=== PATIENT | female | born 1995 | race Caucasian/White ===

== ENCOUNTER 2020-06-06 12:07 | Inpatient (IN) ==
[2020-06-06 13:03] LABS: Bacteria,Urine Occasional /HPF (Few); Bilirubin,Urine Negative (Negative); Blood, Urine Small mg/dL (Negative); Glucose,Urine (UA) Negative (Negative); Ketones,Urine Negative (Negative); Mucus,Urine Occasional /LPF (Occasional); Nitrite,Urine Negative (Negative); Protein,Urine 30 MG/DL; RBC,Urine 2 /HPF (0-4); Squamous Epithelial Cell,Urine Occasional /HPF (0-10); Urine Appearance Slightly Hazy (Clear); Urine Color Yellow (Yellow); Urine Specific Gravity 1.025 (1.001-1.035); WBC,Urine 4 /HPF (0-6)
[2020-06-06 13:13] LABS: Barbiturates Screen,Urine Negative (Negative); Benzodiazepines Screen,Urine Negative (Negative); Cannabinoid Screen,Urine Negative (Negative); Opiate Screen,Urine Negative (Negative); Phencyclidine Screen,Urine Negative (Negative)
[2020-06-06] MEDS ORDERED: MEPERIDINE 50 MG/1 ML VIAL IV ONE (13:14)
[2020-06-06] MEDS ORDERED: ONDANSETRON 4 MG/2 ML VIAL IV ONE (13:14)
[2020-06-06] MEDS ORDERED: LACTATED RINGERS 1,000 ML IV ONE (13:17)
[2020-06-06] MEDS ORDERED: ONDANSETRON 4 MG/2 ML VIAL IV PRN ×2 (14:23→15:28)
[2020-06-06] MEDS ORDERED: MEPERIDINE 50 MG/1 ML VIAL IV PRN (14:23)
[2020-06-06] MEDS ORDERED: BUTORPHANOL 2 MG/ML VIAL IV PRN (14:23)
[2020-06-06] MEDS ORDERED: LACTATED RINGERS 1,000 ML IV SCH (14:30)
[2020-06-06] MEDS ORDERED: OXYTOCIN/LR 20 UNIT/1,000 ML BAG IV SCH (14:30)
[2020-06-06] MEDS ORDERED: OXYTOCIN/LR 20 UNIT/1,000 ML BAG IV ONE ×2 (14:39→15:28)
[2020-06-06] MEDS ORDERED: TRANEXAMIC ACID 1,000 MG/10 ML VIAL ONE (14:39)
[2020-06-06] MEDS ORDERED: miSOPROStoL 200 MCG TABLET ONE (14:39)
[2020-06-06] MEDS ORDERED: CARBOPROST TROMETHAMINE 250 MCG/ML AMP IM ONE (14:40)
[2020-06-06] MEDS ORDERED: METHYLERGONOVINE 0.2 MG/1 ML AMP ONE (14:40)
[2020-06-06 14:45] LABS: Basophils % 0.2 % (0.0-0.8); Eosinophils % 0.3 % (0.00-10.9); Hematocrit 33.3 VOL% (35.7-47.0); Hemoglobin 10.5 GM/DL (12.0-16.0); Immature Granulocytes % 0.4 %; Immature Granulocytes Absolute 0.05 #; Lymphocytes # 1.6 10*3/uL (1.4-4.0); Lymphocytes % 14.2 % (21.3-54.2); Mean Corpuscular HGB Conc 31.5 GM/DL (32-36); Mean Corpuscular Volume 85.4 FL (87-102); Mean Platelet Volume 9.2 FL (9.6-12.0); Monocytes % 10.3 % (1.7-12.7); Neutrophils % 74.6 % (38.7-73.9); Platelet Count 254 T/CUMM (130-400); Red Cell Distribution Width 14.3 % (9.3-17.3); White Blood Count 11.3 T/CUMM (4-12)
[2020-06-06] MEDS ORDERED: LIDOCAINE 1% 50 ML VIAL ONE (14:48)
[2020-06-06 15:09] LABS: Albumin 2.6 G/DL (3.4-5.0); Bilirubin,Total 0.4 MG/DL (0.2-1.0); Osmolality,Calculated 272.7 MOS/KG (273-304); Total Protein 7.1 G/DL (6.4-8.3)
[2020-06-06 15:14] LABS: Cord Arterial Blood HCO3 20.1 MMOL/L
[2020-06-06 15:19] LABS: Cord Venous Blood HCO3 21.1 MMOL/L; Cord Venous Blood PCO2 40.9 MMHG
[2020-06-06] MEDS ORDERED: BISACODYL 10 MG SUPP RECTAL PRN (15:28)
[2020-06-06] MEDS ORDERED: RHO(D) IMMUNE GLOBULIN 300 MCG SYRINGE IM ONE (15:28)
[2020-06-06] MEDS ORDERED: BENZOCAINE 20%/MENTHOL 0.5% SPRAY 56 GM CAN TOP PRN (15:28)
[2020-06-06] MEDS ORDERED: HYDROCORTISONE 2.5% RECTAL CREAM 30 GM TUBE TOP PRN (15:28)
[2020-06-06] MEDS ORDERED: DIPH/TET/ACEL PERT BOOSTER VACCINE 0.5 ML VIAL IM ONE (15:28)
[2020-06-06] MEDS ORDERED: WITCH HAZEL PADS 100/JAR TOP PRN (15:28)
[2020-06-06] MEDS ORDERED: ACETAMINOPHEN 325 MG TABLET PO PRN (15:28)
[2020-06-06] MEDS ORDERED: oxyCODONE/ACETAMINOPHEN 5-325 MG TABLET PO PRN (15:28)
[2020-06-06] MEDS ORDERED: MEASLES/MUMPS/RUBELLA VACCINE 0.5 ML VIAL SUBCUT ONE (15:28)
[2020-06-06] MEDS ORDERED: LANOLIN 50% CREAM 0.3 OZ TUBE TOP PRN (15:28)
[2020-06-06] MEDS: IBUPROFEN 800 MG TABLET PO PRN (17:38)
[2020-06-06] MEDS: oxyCODONE/ACETAMINOPHEN 5-325 MG TABLET PO PRN (20:32)
[2020-06-06] MEDS: DOCUSATE SODIUM 100 MG CAPSULE PO SCH (20:32)
[2020-06-07 06:39] LABS: Basophils % 0.2 % (0.0-0.8); Eosinophils % 0.2 % (0.00-10.9); Hematocrit 28.7 VOL% (35.7-47.0); Hemoglobin 8.8 GM/DL (12.0-16.0); Immature Granulocytes % 0.5 %; Immature Granulocytes Absolute 0.05 #; Lymphocytes # 1.1 10*3/uL (1.4-4.0); Lymphocytes % 12.4 % (21.3-54.2); Mean Corpuscular HGB Conc 30.7 GM/DL (32-36); Mean Corpuscular Volume 86.7 FL (87-102); Mean Platelet Volume 9.1 FL (9.6-12.0); Monocytes % 9.3 % (1.7-12.7); Neutrophils % 77.4 % (38.7-73.9); Platelet Count 203 T/CUMM (130-400); Red Blood Count 3.31 MC/CUMM (3.8-5.5); Red Cell Distribution Width 14.4 % (9.3-17.3); White Blood Count 9.1 T/CUMM (4-12)
[2020-06-07] MEDS: IBUPROFEN 800 MG TABLET PO PRN ×2 (09:14→15:03)
[2020-06-07] MEDS: oxyCODONE/ACETAMINOPHEN 5-325 MG TABLET PO PRN ×2 (09:16→15:03)
[2020-06-07] MEDS: FERROUS SULFATE 325 MG TABLET PO SCH ×2 (09:16→20:19)
[2020-06-07] MEDS: DOCUSATE SODIUM 100 MG CAPSULE PO SCH ×2 (09:16→20:19)
[2020-06-08] MEDS: IBUPROFEN 800 MG TABLET PO PRN ×2 (00:30→06:24)
[2020-06-08 07:14] VITALS: BP 124/66
[2020-06-08] MEDS: DOCUSATE SODIUM 100 MG CAPSULE PO SCH (08:52)
[2020-06-08] MEDS: FERROUS SULFATE 325 MG TABLET PO SCH (08:53)
[2020-06-08] MEDS: oxyCODONE/ACETAMINOPHEN 5-325 MG TABLET PO PRN (10:01)
== END 2020-06-08 13:20 | disposition home or self-care (01) | DRG 560 ==
LOC: N.LDOUT 12:07 → N.LD 12:08 → N.OB 18:15
PROVIDERS: ADMIT Obstetrics & Gynecology; ATTEND Obstetrics & Gynecology